=== PATIENT | male | born 1965 | race Caucasian/White ===

== ENCOUNTER 2019-12-29 10:02 | Emergency (ER) | payer SELFPAY ==
[~2019-12-29] VITALS: Ht 167.6 cm; Wt 100.2 kg
[2019-12-29 10:07] VITALS: BP 130/98
[2019-12-29 10:56] VITALS: BP 130/89
== END 2019-12-29 10:56 | disposition home or self-care (01) ==
LOC: MED 10:02
DX: H92.02 Otalgia, left ear (principal); H61.22 Impacted cerumen, left ear
CPT/HCPCS: 99283

== ENCOUNTER 2020-09-08 22:56 | Emergency (ER) | payer MEDICAID, OTHER ==
[~2020-09-08] VITALS: Ht 167.6 cm; Wt 102.1 kg
[2020-09-08 23:05] VITALS: BP 135/70
--- NOTE | 2020-09-08 23:10 | NUR ---
55 Y/O MALE PRESENTED TO THE ED C/O 05/27 INTERMITTENT ACHING PAIN IN HIS RIGHT LOWER BACK. PT STATED LIFTING A HEAVY OBJECT AT WORK 2 WKS AGO AND HAS HAD PAIN SINCE. PT DENIES: FEVER, N/V, DIARRHEA, SOB. PT DENIES TENDERNESS TO PALPATION. NO BRUISING NOTED. CMS INTACAT IN BILATERAL LOWER EXTREMITIES. PT DENIES BURNING, DIFFICULTY, OR PAIN WITH URINATION. PT DENIES ANY SURGERIES. PT IS NOT IN ANY ACUTE DISTRESS AT THIS TIME. PMH: HTN, PRE-DIABETIC NKA
--- NOTE | 2020-09-08 23:11 | NUR ---
PT AMBULATED TO ED BED 4
--- NOTE | 2020-09-08 23:18 | NUR ---
ERMD AT BEDSIDE FOR MEDICAL EVALUATION
[2020-09-08] MEDS ORDERED: KETOROLAC 60 MG/2 ML VIAL IM ONE (23:20)
--- NOTE | 2020-09-08 23:32 | NUR ---
PT TAKEN TO XRAY VIA WHEELCHAIR
--- NOTE | 2020-09-08 23:48 | NUR ---
PT BACK FROM X-RAY VIA W/C
[2020-09-09 00:08] VITALS: BP 135/70
== END 2020-09-09 00:08 | disposition home or self-care (01) ==
LOC: MED 22:56
DX: S39.012A Strain of muscle, fascia and tendon of lower back, initial encounter (principal); I10 Essential (primary) hypertension; X58.XXXA Exposure to other specified factors, initial encounter; Y93.89 Activity, other specified; Y92.89 Other specified places as the place of occurrence of the external cause; Y99.8 Other external cause status
CPT/HCPCS: 72110; 96372; 99283; J1885